=== PATIENT | male | born 1990 | race Caucasian/White ===

== ENCOUNTER 2018-08-25 02:59 | Emergency (ER) | payer SELFPAY ==
[2018-08-25 03:07] VITALS: O2SAT 97
[2018-08-25 03:43] LABS: BASO % 0.1 % (0.0-2.0); EOS % 0.4 % (0.0-4.0); HEMOGLOBIN 16.2 g/dL (12.0-18.0); LYMPH # 0.7 K/uL (1.0-4.3); LYMPH % 6.4 % (20.0-40.0); MEAN CORPUSCULAR HEMOGLOBIN 29.3 pg (27.0-31.0); MEAN CORPUSCULAR HGB CONC 34.1 g/dL (33.0-37.0); MEAN PLATELET VOLUME 9.4 fL (7.2-11.7); MONO # 0.4 K/uL (0.0-0.8); MONO % 4.2 % (0.0-10.0); NEUT # 9.3 K/uL (1.8-7.0); NEUT % 88.9 % (50.0-75.0); PLATELET COUNT 214 K/uL (130-400); RBC 5.52 Mil/uL (4.40-5.90); RED CELL DISTRIBUTION WIDTH 12.6 % (11.5-14.5); WHITE BLOOD COUNT 10.5 K/uL (4.8-10.8)
[2018-08-25 03:50] LABS: URINE BILIRUBIN NEGATIVE (NEGATIVE); URINE BLOOD 1+ (NEGATIVE); URINE COLOR Yellow (YELLOW); URINE GLUCOSE (UA) NORMAL (Normal); URINE LEUKOCYTE ESTERASE NEG Leu/uL (Negative); URINE PROTEIN NEGATIVE (NEGATIVE); URINE UROBILINOGEN NORMAL mg/dL (0.2-1.0)
[2018-08-25 03:54] LABS: ALB/GLOB RATIO 1.8 (1.0-2.1); ALBUMIN 4.8 g/dL (3.5-5.0); ALT/SGPT 46 U/L (21-72); AST/SGOT 38 U/L (17-59); BLOOD UREA NITROGEN 14 mg/dL (9-20); GFR NON-AFRICAN AMERICAN > 60; LIPASE 63 U/L (23-300)
[2018-08-25 04:00] LABS: BANDS 1 % (0-2); LYMPHOCYTE 7 % (20-40); MONOCYTE 5 % (0-10); NEUTROPHIL 87 % (50-75); PLATELET ESTIMATE NORMAL (NORMAL); TOTAL CELLS COUNTED 100
[2018-08-25 04:01] LABS: URINE CLARITY Hazy (Clear)
[2018-08-25] MEDS ORDERED: Magnesium Citrate Oral SOL (300 ml) PO ONE (04:44)
--- NOTE | 2018-08-25 04:46 | C.PDOC ---
History Of Present Illness 28 year old male presents to the ED c/o LLQ abdominal pain for the past 1 day. Patient reports he has been having trouble moving his bowels since yesterday. Patient denies fever, chills, nausea, vomit, diarrhea, back pain, dysuria, h ematuria, rash, recent travel, sick contacts. Time Seen by Provider: 08/25/18 03:15 Chief Complaint (Nursing): Abdominal Pain History Per: Patient History/Exam Limitations: no limitations Onset/Duration Of Symptoms: Days (1) Current Symptoms Are (Timing): Still Present Location Of Pain/Discomfort: LLQ Radiation Of Pain To:: None Quality Of Discomfort: "Pain" Associated Symptoms: Constipation. denies: Nausea, Vomiting, Diarrhea, Urinary Symptoms Recent travel outside of the [place]: No Additional History Per: Patient Past Medical History Reviewed: Historical Data, Nursing Documentation, Vital Signs Vital Signs: Last Vital Signs Temp 97.7 F 08/25/18 02:59 Pulse 85 08/25/18 02:59 Resp 20 08/25/18 02:59 BP 122/84 08/25/18 02:59 Pulse Ox 97 08/25/18 02:59 - Medical History PMH: No Chronic Diseases Surgical History: No Surg Hx - [facility] Procedures TETANUS TOXOID ADMINIST (03/26/13) Family History: States: Unknown Family Hx - Social History Hx Tobacco Use: No Hx Alcohol Use: No Hx Substance Use: No - Immunization History Hx Tetanus Toxoid Vaccination: No Hx Influenza Vaccination: No Hx Pneumococcal Vaccination: No Review Of Systems Constitutional: Negative for: Fever, Chills Cardiovascular: Negative for: Chest Pain Respiratory: Negative for: Shortness of Breath Gastrointestinal: Positive for: Abdominal Pain, Constipation. Negative for: [place], Vomiting, Diarrhea Genitourinary: Negative for: Dysuria, Hematuria Musculoskeletal: Negative for: Back Pain Skin: Negative for: Rash Neurological: Negative for: Weakness, Numbness Physical Exam - Physical Exam Appears: Non-toxic, No Acute Distress Skin: Normal Color, Warm, Dry Head: Atraumatic, Normacephalic Eye(s): bilateral: Normal Inspection Oral Mucosa: Moist Neck: Normal ROM, Supple Chest: Symmetrical Cardiovascular: Rhythm Regular Respiratory: Normal Breath Sounds, No Rales, No Rhonchi, No Wheezing Gastrointestinal/Abdominal: Soft, Tenderness (LLQ), No Guarding, No Rebound Back: No CVA Tenderness Extremity: Normal ROM, No Tenderness, No Swelling Neurological/Psych: Oriented x3, Normal Speech, Normal Cognition Gait: Steady ED Course And Treatment - Laboratory Results Result Diagrams: 08/25/18 03:40 08/25/18 03:40 Lab Results: Total Bilirubin 0.6 mg/dL (0.2-1.3) 08/25/18 03:40 AST 38 U/L (17-59) 08/25/18 03:40 ALT 46 U/L (21-72) 08/25/18 03:40 Alkaline Phosphatase 67 U/L (38-126) 08/25/18 03:40 Total Protein 7.5 g/dL (6.3-8.3) 08/25/18 03:40 Albumin 4.8 g/dL (3.5-5.0) 08/25/18 03:40 Globulin 2.7 gm/dL (2.2-3.9) 08/25/18 03:40 Albumin/Globulin Ratio 1.8 (1.0-2.1) 08/25/18 03:40 Lipase 63 U/L (23-300) 08/25/18 03:40 Urine Color Yellow (YELLOW) 08/25/18 03:40 Urine Clarity Hazy (Clear) 08/25/18 03:40 Urine pH 8.0 (5.0-8.0) 08/25/18 03:40 Ur Specific [place] 1.015 (1.003-1.030) 08/25/18 03:40 Urine Protein Negative mg/dL (NEGATIVE) 08/25/18 03:40 Urine Glucose (UA) Normal mg/dL (Normal) 08/25/18 03:40 Urine Ketones Trace mg/dL (NEGATIVE) 08/25/18 03:40 Urine Blood 1+ (NEGATIVE) H 08/25/18 03:40 Urine Nitrate Negative (NEGATIVE) 08/25/18 03:40 Urine Bilirubin Negative (NEGATIVE) 08/25/18 03:40 Urine Urobilinogen Normal mg/dL (0.2-1.0) 08/25/18 03:40 Ur Leukocyte Esterase Neg Adam/uL (Negative) 08/25/18 03:40 Urine WBC (Auto) 1 /hpf (0-5) 08/25/18 03:40 Urine RBC (Auto) 16 /hpf (0-3) H 08/25/18 03:40 O2 Sat by Pulse Oximetry: 97 (ON RA) Pulse Ox Interpretation: Normal - Other Rad Obstructive series X-Ray X-Ray: Interpreted by Me, Viewed By Me Interpretation: Moderate stool impaction Progress Note: Plan: - Obstructice series X-Ray. - Labs. - citroma 300 ml PO. - Toradol 30 mg IVP. Patient is resting comfortably, abdomen remains soft, and patient is tolerating PO. Patient feels comfortable going home. Patient will be discharged home. 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 - Scribe Statement The provider has reviewed the documentation as recorded by the Scribe Ruddy Kunz All medical record entries made by the Poonamibguero were at my direction and personally dictated by me. I have reviewed the chart and agree that the record accurately reflects my personal performance of the history, physical exam, medical decision making, and the department course for this patient. I have also personally directed, reviewed, and agree with the discharge instructions and disposition.
[2018-08-25] MEDS ORDERED: Magnesium Citrate Oral SOL (300 ml) ONE (04:56)
[2018-08-25 05:05] VITALS: BP 110/72; PULSE 88; RESP 18; TEMP 98.3
--- NOTE | 2018-08-25 13:41 | RAD ---
Date of service: 08/25/2018 PROCEDURE: Radiographs of the chest and abdomen (obstructive series) HISTORY: Abdominal pain COMPARISON: No prior. TECHNIQUE: AP radiograph of the chest, with upright and supine radiographs of the abdomen. FINDINGS: CHEST: Lungs: The lungs are well inflated and clear. Cardiovascular: Normal size heart. No pulmonary vascular congestion. No aortic atherosclerotic calcification present Pleura: No pleural fluid. No pneumothorax. Other findings: None. ABDOMEN AND PELVIS: Bowel: There is moderate amount of stool in the colon. The bowel gas pattern is nonspecific. No evidence of obstruction. Free air: None. Bones: Unremarkable. Other findings: There is a 2 mm calcific density overlying the left lower renal silhouette and 4 mm calcific density below the left transverse process of L3 vertebral body. IMPRESSION: 1. Constipation. Nonobstructive nonspecific bowel gas pattern. 2. Suspect 2 mm stone in the lower pole of the left kidney. 4. 4 mm calcific density below the left transverse process of L3 vertebral body is nonspecific and could represent phlebolith or soft tissue calcification, however could represent a ureteral stone in the appropriate clinical setting. If clinically indicated correlation with CT scan of the abdomen and pelvis without intravenous contrast may be performed. The final report is tagged to the PA review folder.
== END 2018-08-25 05:02 | disposition home or self-care (01) ==
LOC: C.ER 02:59
DX: K59.00 Constipation, unspecified (principal); R10.32 Left lower quadrant pain
CPT/HCPCS: 74022; 80053; 81001; 83690; 85025; 96374; 99284; J1885